=== PATIENT | male | born 1935 | race African-American/Black ===

== ENCOUNTER → 2019-12-17 | Outpatient (CLI) | payer MEDICARE ==
[2019-12-17 16:46] LABS: GLUCOSE 87 mg/dL (70-99)
== END | disposition home or self-care (01) ==
LOC: LAB 14:23
PROVIDERS: ATTEND Psychiatry & Neurology Neurology with Special Qualifications in Child Neurology
DX: G62.89 Other specified polyneuropathies (principal); G25.81 Restless legs syndrome; R20.0 Anesthesia of skin; R53.1 Weakness
CPT/HCPCS: 82607; 82728; 82746; 82947; 83540; 83550; 84165; 84443; 85651; 86038